=== PATIENT | male | born 1955 | race Caucasian/White ===

== ENCOUNTER 2019-02-02 10:53 | Day surgery (SDC) | payer OTHER ==
[~2019-02-02] VITALS: Ht 188 cm; Wt 83.9 kg
[2019-02-02 11:39] LABS: HEMATOCRIT 42.9 % (42.0-54.0); HEMOGLOBIN 15.2 g/dL (13.5-17.5); MCH 34.1 pg (26.0-34.0); MCHC 35.4 g/dL (31.0-37.0); MCV 96.2 fL (80.0-100.0); MEAN PLATELET VOLUME 9.1 fL (7.4-10.4); RBC 4.46 10x6/uL (4.20-6.10); RDW 13.2 % (11.5-14.5); WBC 8.8 10x3/uL (4.8-10.8)
[2019-02-02] MEDS ORDERED: ATIVAN1 MG PO (12:04)
[2019-02-02] MEDS ORDERED: LATUDA40 MG PO (12:04)
[2019-02-02] MEDS ORDERED: SINGULAIR10 MG PO (12:05)
[2019-02-02] MEDS ORDERED: TRAZODONE HCL150 MG PO (12:05)
[2019-02-02] MEDS ORDERED: CATAPRES0.1 MG PO (12:05)
[2019-02-02] MEDS ORDERED: NEURONTIN 400400 MG PO (12:06)
[2019-02-02] MEDS ORDERED: HYDROCODON-ACE1 EA10 PO ×2 (12:07→13:49)
[2019-02-02] MEDS ORDERED: BACLOFEN10 MG PO (12:09)
[2019-02-02 12:11] VITALS: BP 121/85; Ht 188 cm; Wt 83.9 kg
[2019-02-02] MEDS ORDERED: CIPRO500 MG PO (13:47)
--- NOTE | 2019-02-02 16:27 | NUR ---
1615-DISCHARGE CRITERIA MET. TOLERATED FULL LIQUID TRAY. ABLE TO AMBULATE AND URINATE. VSS. REMOVED IV FROM RIGHT HAND WITH CATH INTACT, DISPOSED INTO SHARPS CONTAINER. COVERED WITH BANDAID. REVIEWED DISCHARGE INSTRUCTIONS WITH 2 WK FOLLOW UP. VERBALIZED UNDERSTANDING. ESCORTED OUT VIA W/C WITH FRIEND DRIVING HOME.
--- NOTE | 2019-02-02 16:27 | NUR ---
1515-REC'D FROM RR. AWAKE AND ALERT,DENIES PAIN,VSS. CL IN EASY REACH. WATER AT BEDSIDE. DRESSING CDI
--- NOTE | 2019-04-11 20:19 | OP ---
PATIENT NAME: KENNETH SANDHU MEDICAL RECORD: [id number] :57 LOCATION:[facility] ADMISSION DATE: SURGEON: FANNY FERNANDO MD DATE OF OPERATION: 02/02/2019 PREOPERATIVE DIAGNOSIS: Eroded spinal cord stimulator generator at the gluteal pocket. POSTOPERATIVE DIAGNOSIS: Eroded spinal cord stimulator generator at the gluteal pocket. PROCEDURE: Removal of spinal cord stimulator generator and distal leads. SURGEON: Fanny Fernando MD DESCRIPTION OF TECHNIQUE: After induction of general endotracheal anesthesia, the patient was rolled prone on chest and hip rolls. The lumbar spine and the gluteal area prepped and draped in usual sterile fashion. There was obvious erosion of the spinal cord stimulator generator through the skin and the generator was removed without difficulty with Metzenbaum scissors to dissect around the perimeter and then as much of the electrodes were removed as possible and then cut at the distal end, the wound was irrigated with copious amounts of Ancef irrigant solution, it was left open to heal by secondary intention. Blood loss was minimal. A sterile dressing was applied to the wound. The patient was awakened in good condition, taken to recovery. All counts were reported as correct. Estimated blood loss was minimal. TRANSINT:[id number] Voice Confirmation ID: [id number] DOCUMENT ID: [id number] FANNY FERNNADO MD at 2019 CC: [id number] DICTATION DATE: 04/05/19 153 [employer] INSPECTOR: 04/06/19 0101 [facility] 02/02/19 [place] [address]
== END 2019-02-02 16:15 | disposition home or self-care (01) ==
LOC: D.OPS 10:53
PROVIDERS: Anesthesiology; ATTEND Neurological Surgery
DX: T85.890A Other specified complication of nervous system prosthetic devices, implants and grafts, initial encounter (principal)